=== PATIENT | female | born 1955 ===

== ENCOUNTER 2018-10-17 13:15 | Inpatient (IN) | payer MEDICARE, BC ==
[~2018-10-17] VITALS: Ht 167.6 cm; Wt 54.1 kg
[2018-10-17 14:32] LABS: Base Excess Venous 1.4 mmol/L; Bicarbonate Venous 24.8 mmol/L (24.0-30.0); PCO2 Venous 48.5 mmHg (38-42); PO2 Venous 54.6 mmHg (38-42); pH Blood Venous 7.35 (7.34-7.37)
[2018-10-17 14:34] LABS: Source, Urine Catheter
[2018-10-17 14:38] LABS: Appearance, Urine Hazy (Clear); Bilirubin, Urine Neg (Neg); Blood, Urine 4+ (Neg); Color, Urine Yellow (P-Yellow); Glucose Qualitative, Urine Neg (Neg); Ketones, Urine Neg (Neg); Leukocyte Esterase, Urine Neg (Neg); Nitrite, Urine Neg (Neg); Protein, Urine 2+ (Neg); Specific Gravity, Urine 1.025 (1.003-1.022); Urobilinogen, Urine NORM (Normal)
[2018-10-17 14:40] LABS: BASOPHILS ABSOLUTE AUTO 0.01 K/mm3 (0.00-0.23); BASOPHILS PERCENT AUTO 0 % (0-2); EOSINOPHILS PERCENT AUTO 0 % (0-6); Hematocrit 38.8 % (33.0-51.0); Hemoglobin 13.3 g/dL (11.5-16.0); IMMATURE GRAN ABSOLUTE AUTO 0.07 K/mm3 (0.00-0.10); IMMATURE GRAN PERCENT AUTO 1 % (0-1); LYMPHOCYTES ABSOLUTE AUTO 0.73 K/mm3 (0.84-5.20); LYMPHOCYTES PERCENT AUTO 5 % (21-46); MONOCYTES ABSOLUTE AUTO 0.99 K/mm3 (0.16-1.47); MONOCYTES PERCENT AUTO 7 % (4-13); Mean Corpuscular HGB 30.8 pg (26.0-34.0); Mean Corpuscular HGB Conc 34.3 g/dL (31.5-36.5); Mean Corpuscular Volume 90 fL (80-100); Mean Platelet Volume 9.6 fL (9.1-12.4); NEUTROPHILS ABSOLUTE AUTO 11.82 K/mm3 (1.96-9.15); NEUTROPHILS PERCENT AUTO 87 % (41-73); Platelet Count 288 K/mm3 (150-400); RDW Coefficient Variation 15.2 % (11.7-14.2); RDW Standard Deviation 50.2 fL (35.1-46.3); Red Blood Cell Count 4.32 M/mm3 (3.80-5.20); White Blood Cell Count 13.62 K/mm3 (4.00-11.30)
[2018-10-17 14:51] LABS: Bacteria Mod /hpf; International Normalized Ratio 0.96; Prothrombin Time Results 10.2 Sec (9.7-11.5); Squamous Epithelial Cells Few /hpf (Few)
[2018-10-17 14:52] LABS: Amorphous Mod (0-Heavy); Hyaline Casts 0-2 /lpf (0-2); Uric Acid Crystals Few /hpf
[2018-10-17 15:02] LABS: Albumin, Blood 3.9 g/dL (3.4-5.0); Albumin/Globulin Ratio 1.1 (0.8-1.8); Bilirubin, Total 1.6 mg/dL (0.1-1.0); Bun/Creatinine Ratio 48.6 (12.0-20.0); Calcium, Blood 8.9 mg/dL (8.5-10.1); Creatine Kinase MB 83.2 ng/mL (0.0-3.6); Creatinine, Blood 2.22 mg/dL (0.40-1.00); Globulin, Blood 3.4 g/dL (2.2-4.0); Potassium, Blood 3.5 mmol/L (3.5-5.5); Total Protein, Blood 7.3 g/dL (6.4-8.2); Troponin I 0.082 ng/mL (0.000-0.040)
[2018-10-17 16:55] LABS: Magnesium, Blood 3.1 mg/dL (1.6-2.4); Uric Acid, Blood 9.2 mg/dL (2.6-6.0)
--- NOTE | 2018-10-17 17:05 | NUR ---
Echocardiogram complete.
[2018-10-17 19:28] LABS: PCO2 Arterial 31.5 mmHg (35-45); PO2 Arterial 58.7 mmHg (80-100); pH Blood Arterial 7.46 (7.35-7.45)
[2018-10-17 21:28] LABS: Bilirubin, Total 1.4 mg/dL (0.1-1.0); Bun/Creatinine Ratio 54.5 (12.0-20.0); Calcium, Blood 7.8 mg/dL (8.5-10.1); Creatinine, Blood 1.54 mg/dL (0.40-1.00); Globulin, Blood 3.1 g/dL (2.2-4.0); Potassium, Blood 3.9 mmol/L (3.5-5.5); Total Protein, Blood 6.1 g/dL (6.4-8.2)
[2018-10-17 21:57] LABS: Creatine Kinase MB Index 0.9 (0.0-4.0)
--- NOTE | 2018-10-17 22:48 | NUR ---
ADMIT NOTE: PT ARRIVED TO ROOM ICU 1 FROM ER VIA GURWARREN AT 2024. PT WITH SLURRED SPEACH, RIGHT SIDED DEFICITS. PT FOLLOWING COMMANDS OPENING EYES AND IS ABLE TO TRACK-PUPILS EQUAL AND REACTIVE TO LIGHT. PT ABLE TO FORM SOME WORDS AND ABLE TO SPEAK SHORT SENTENCES. PT ANSWERED SOME QUESTIONS APPROPRIATELY. PT REPEATING, "I'M HUNGRY", "I NEED SOMETHING TO EAT". PT WAS VERBAL WITH BROTHER CORDELIA STATING, "I LOVE YOU" AND "MY DOG". PT HAS, WITH SLURRED SPEACH, MOUTHED PLACE IS [place], AND TRIED TO WORD [employer]. LS CLEAR SATS 98% ON RA. BP HYPOTENSIVE (PT RECEIVED A TOTAL OF FIVE LITERS FLUID IN ER). CURRENLTY LR AT 200mL/hr INFUSING. SEE NEXT NOTE:
--- NOTE | 2018-10-17 22:57 | NUR ---
FAMILY: PT'S BROTHER CORDELIA TO ROOM SHORTLY AFTER PT ARRIVAL AND STATED THAT HE LIVES IN THE SAME PARK THE PT. CORDELIA STATED THAT HE HADN'T SEEN PT FOR PAST THREE WEEKS BECAUSE WHEN HE WOULD VISIT THE PT THREE WEEKS AGO, PT WOULD IGNORE HIM. CORDELIA STATED THAT THERE ARE FAMILY ISSUES R/T, "SOME INHERITANCE". PT, HOWEVER, ASKED CORDELIA ABOUT HER DOG AND LATER STATED, "I LOVE YOU". CORDELIA STATED THAT PT'S FRIEND AND NEIGHBOR FOUND PT TODAY ON PT'S BEDROOM FLOOR. CORDELIA STATED THAT THIS FRIEND IS NAMED DAVID AND IS GOOD FRIENDS WITH THE PT. CORDELIA STATED THAT HE WAS UNSURE OF PT'S WISHES FOR CODE STATUS AND ONLY KNOWS THAT PT HAD A HISTORY OF HTN AND RIGHT HAND SURGERY. CORDELIA STATED THAT PT IS BEGINNING TO HAVE, "HUNCH BACK" AND THERE IS FAMILY HX OF SPINAL STENOSIS. CORDELIA STATED WILL BE BACK TOMORROW AROUND 1:00 PM.
--- NOTE | 2018-10-17 23:18 | NUR ---
ORAL CARE: PT GIVEN ORAL CARE SEVERAL TIMES SINCE ADMIT TO LOOSEN CASTS. CASTS REMOVED AND PT SUCKING WATER FROM THE ORAL SPONGE. PT SWALLOWING AND IS ABLE TO COUGH. PT STATES, "THANK YOU" EACH TIME ORAL CARE PROVIDED AND EACH TIME PT REPOSITIONED. PT REPEATING, "I'M HUNGRY" AND "I'M THIRSTY". PT GIVEN REASON FOR NPO AT THIS TIME WITH PT RESPONDING, "OKAY". WILL CONTINUE PROVIDING ORAL CARE AND MOISTURE WITH ORAL SWAB.
--- NOTE | 2018-10-18 00:05 | NUR ---
HOSPITALIST NOTIFIED RE: CONTINUED HYPOTENSION AFTER START OF SIXTH LITER FLUID. WILL PREPARE FOR CENTRAL LINE PLACEMENT.
--- NOTE | 2018-10-18 00:50 | NUR ---
DR. WARREN TO BEDSIDE: PT REPOSITIONED FOR LAD DRAW. BP IMPROVED AFTER REPOSITIONING. DR. WARREN, THEN, TO BEDSIDE. PT AWAKENED AND FOLLOWED COMMANDS STATING, "I'M SO HUNGRY". DR. WARREN OK'd FOR PT TO TRY THICKENED JUICE VIA ORAL SWAB. PT TOLERATED WELL. DR. WARREN WITNESSED PT ABLE TO SUCK THE THICKENED JUICE FROM THE SWAB AND SWALLOW WITHOUT DIFFICULTY. PT CONSUMED ENTIRE CUP OF THICKENED APPLE JUICE USING THIS METHOD. PT REPEATED, "I'M SO HUNGRY", "THAT'S SO GOOD", AND "THANK YOU". WILL UPDATE DR. WARREN WITH 0000 LABS AND FOLLOWING VITALS.
[2018-10-18 00:57] LABS: Bun/Creatinine Ratio 56.6 (12.0-20.0); Calcium, Blood 7.8 mg/dL (8.5-10.1); Creatinine, Blood 1.43 mg/dL (0.40-1.00); Potassium, Blood 3.2 mmol/L (3.5-5.5)
--- NOTE | 2018-10-18 00:57 | NUR ---
[facility] DOWN AND LOCKED ADMISSION ASSESSMENT SCREEN. UNABLE TO ACCESS ADMISSION ASSESSMENT SCREEN AT THIS TIME. WILL PLACE INITIAL ASSESSMENT ON THE PROCESS INTERVENTION ASSESSMENT.
[2018-10-18 02:43] LABS: BASOPHILS ABSOLUTE AUTO 0.01 K/mm3 (0.00-0.23); BASOPHILS PERCENT AUTO 0 % (0-2); EOSINOPHILS PERCENT AUTO 0 % (0-6); Hematocrit 33.9 % (33.0-51.0); Hemoglobin 11.4 g/dL (11.5-16.0); IMMATURE GRAN ABSOLUTE AUTO 0.07 K/mm3 (0.00-0.10); IMMATURE GRAN PERCENT AUTO 1 % (0-1); LYMPHOCYTES ABSOLUTE AUTO 0.67 K/mm3 (0.84-5.20); LYMPHOCYTES PERCENT AUTO 7 % (21-46); MONOCYTES ABSOLUTE AUTO 0.66 K/mm3 (0.16-1.47); MONOCYTES PERCENT AUTO 7 % (4-13); Mean Corpuscular HGB 30.7 pg (26.0-34.0); Mean Corpuscular HGB Conc 33.6 g/dL (31.5-36.5); Mean Corpuscular Volume 91 fL (80-100); Mean Platelet Volume 9.4 fL (9.1-12.4); NEUTROPHILS ABSOLUTE AUTO 8.17 K/mm3 (1.96-9.15); NEUTROPHILS PERCENT AUTO 85 % (41-73); Platelet Count 225 K/mm3 (150-400); RDW Coefficient Variation 15.2 % (11.7-14.2); RDW Standard Deviation 51.1 fL (35.1-46.3); Red Blood Cell Count 3.71 M/mm3 (3.80-5.20); White Blood Cell Count 9.58 K/mm3 (4.00-11.30)
[2018-10-18 03:11] LABS: Bun/Creatinine Ratio 56.6 (12.0-20.0); Calcium, Blood 7.8 mg/dL (8.5-10.1); Creatinine, Blood 1.36 mg/dL (0.40-1.00); Potassium, Blood 3.1 mmol/L (3.5-5.5)
--- NOTE | 2018-10-18 04:51 | NUR ---
SPENT SEVERAL MINUTES WITH PT. PT GIVEN ENSURE ROTHMAN FLAVOR VIA ORAL SWAB. PT EMOTIONAL, FIRST REPEATING, "I'M SO THIRSTY" AND "I'M SO HUNGRY". WHILE GIVING PT SEVERAL SWABS PT WAS INFORMED OF THE PLAN FOR THIS DAY. PT BECAME TEARFUL AND AFTER SEVERAL ATTEMPTS, VERBALIZED, "I DON'T WANT TO BE A BURDEN TO MY BROTHER". PT CONSOLABLE AND STATED, "THANK YOU" AFTER EXPLAINING THE DIFFERENT EVAILUATIONS OCCURING ON THIS DAY. PT GIVEN SEVERAL MORE ORAL SWABS AND THEN WAS CONTENT TO LYING AND GOING BACK TO SLEEP.
--- NOTE | 2018-10-18 07:16 | NUR ---
ASSUMED CARE REPORT KEVIN Braxton RN. DR. PRETTY CALLED DURING REPORT. ORDERS REC'D AND IMPLEMENTED.
--- NOTE | 2018-10-18 08:05 | NUR ---
MD VISIT DR. THOMPSON IN. PATIENT IS HUNGRY. WANTS TO EAT. RIGHT NEGLECT AND WEAKNESS.
--- NOTE | 2018-10-18 08:08 | NUR ---
DIANE Vitale RN. PLACING POWERGLIDE IV WITH TECHNOLOGY SPECIALIST
--- NOTE | 2018-10-18 08:40 | NUR ---
DYLAN HEALY. SPEECH THERAPY
--- NOTE | 2018-10-18 10:58 | NUR ---
SPEECH THERAPY CLEARED PATIENT FOR MEDS CRUSHED IN APPLESAUCE SO CA ASA WAS CHANGED TO PO AND PHARMACIST IS CHANGING LOVENOX DOSE R/T PATIENT'S AGE
--- NOTE | 2018-10-18 11:56 | NUR ---
TO CT SCAN AND BACK. CALLED AND LEFT MESSAGE FOR BROTHER TO BRING IN DENTURES AND TO PLEASE NOTIFY EX- PER PATIENT REQUEST
--- NOTE | 2018-10-18 12:37 | NUR ---
PATIENT'S BROTHER CALLED. HE WILL BRING IN DENTURES AND PATIENT'S PHONE SO SHE CAN CALL HER EX . PATIENT IS NEW TO THE AREA FROM [place]
--- NOTE | 2018-10-18 14:50 | NUR ---
NEIGHBOR IN TO VISIT. ID GIVEN TO ADMITTING. CORRECT NAME ENTERED. ORAL CARE WITH DENTURES COMPLETED
--- NOTE | 2018-10-18 15:08 | NUR ---
Patient is lying in bed and resting but quickly awakens to the sound of her name. I introduce myself and and the department I am from. Patient is warm and kind and is very appreciative of my visit. Patient struggles to talk and tears up when I comment on how frustrating and fearful her condition feels right now. We talk about expectancy and hope and the importance of a positive attitude. I listen, provide emotional support and prayer. Patient tells me with tears in her eyes that the prayer was so sweet and what she needed to hear. I will continue to remain available to patient and family.
--- NOTE | 2018-10-18 16:29 | NUR ---
CONSULTED WITH DR. GARRISON RE: CONTINUED HYPOTENSION. IONIZED CALCIUM ORDERED WITH INSTRUCTION TO CALL HIM WITH THE RESULTS
--- NOTE | 2018-10-18 17:32 | NUR ---
NOTIFIED DR. GARRISON OF IONIZED CA RESULT. ORDER FOR BOLUS LR AND TO CALL HIM IF MAP LESS THAN 60
--- NOTE | 2018-10-18 18:35 | NUR ---
BP IMPROVED AFTER ONE LITER BOLUS. CONTINUES TO HAVE DIFFICULTY WITH FINDING WORDS AND CAN'T SAY PASSWORD TO HER PHONE, EVEN THOUGH SHE SAYS SHE KNOWS IT. GOOD APPETITE.
--- NOTE | 2018-10-18 19:15 | NUR ---
ASSUMED CARE PT IN BED, WAKES TO VOICE, IS ALERT TO NAME AND FOLLOWS COMMANDS. PT HAVING A DIFFICULT TIME FINDING APPROPRIATE WORDS TO EXPRESS NEEDS BUT USES WORDS THAT ARE CLOSE TO WHAT SHE IS TRYING TO SAY. PT EXPRESSES FRUSTRATION WITH COMMUNCATION LIMITATES AND REPEATS "I AM NOT DUMB." REASSURED PT THAT HER SX ARE ALL FROM THE STROKE. PT CONTINUES TO WANT TO CALL EX- BUT CANNOT UNLOCK PHONE YET. LR AT 200ML/HR POST BOLUS D/T HYPOTENSION AND BP HAS IMPROVED; WILL CALL FOR ADDITIONAL ORDERS IF MAP <60, ECG SHOWS SR IN THE 60-70'S AND O2 SATS MID 90'S ON RA.
--- NOTE | 2018-10-19 | NUR ---
UPDATE/FOUND POTENTIAL PHONE NUMBER FOR EX- WHILE TALKING WITH PT, SHE REPORTED THAT THERE IS ANOTHER PHONE THAT DOES NOT HAVE A PASSWORD. PHONE LOCATED ON COUNTER AND ABLE TO FIND PHONE LISTING FOR WERO BLOCK. PT CONFIRMS THIS IS THER PERSON SHE IS TRYING TOO CONTACT AND WOULD LIKE HIM UPDATED. PT HAS NO MOVEMENT TO RT ARM BUT IS ABLE TO WIGGLE TOES ON RT FOOT AND HAS MOVED RT LEG BACK AND FORTH IN BED. PT CONTINUES TO STRUGGLE TO FIND WORDS BUT IS AWARE SHE IS NOT USING THE RIGHT WORD AND HAS BEEN ABLE TO CORRECT HERSELF AT TIMES. PT HAS BEEN ABLE TO DRINK VIA SPOON THREE 4OZ CONTAINERS OF FLUID THAT ARE NECTAR THICK. PT HAS BEEN REMINDED TO SLOW DOWN AND CONTINUES TO REPORT THIRST. BP STABLE W/ MAP >60.
[2018-10-19 03:46] LABS: BASOPHILS ABSOLUTE AUTO 0.01 K/mm3 (0.00-0.23); BASOPHILS PERCENT AUTO 0 % (0-2); EOSINOPHILS ABSOLUTE AUTO 0.07 K/mm3 (0.00-0.68); EOSINOPHILS PERCENT AUTO 1 % (0-6); Hematocrit 31.4 % (33.0-51.0); Hemoglobin 10.8 g/dL (11.5-16.0); IMMATURE GRAN ABSOLUTE AUTO 0.02 K/mm3 (0.00-0.10); IMMATURE GRAN PERCENT AUTO 0 % (0-1); LYMPHOCYTES ABSOLUTE AUTO 1.54 K/mm3 (0.84-5.20); LYMPHOCYTES PERCENT AUTO 22 % (21-46); MONOCYTES ABSOLUTE AUTO 0.86 K/mm3 (0.16-1.47); MONOCYTES PERCENT AUTO 12 % (4-13); Mean Corpuscular HGB 31.2 pg (26.0-34.0); Mean Corpuscular HGB Conc 34.4 g/dL (31.5-36.5); Mean Corpuscular Volume 91 fL (80-100); Mean Platelet Volume 9.3 fL (9.1-12.4); NEUTROPHILS ABSOLUTE AUTO 4.58 K/mm3 (1.96-9.15); NEUTROPHILS PERCENT AUTO 65 % (41-73); Platelet Count 198 K/mm3 (150-400); RDW Standard Deviation 50.6 fL (35.1-46.3); Red Blood Cell Count 3.46 M/mm3 (3.80-5.20); White Blood Cell Count 7.08 K/mm3 (4.00-11.30)
[2018-10-19 04:31] LABS: Albumin, Blood 2.2 g/dL (3.4-5.0); Anion Gap 5 mmol/L (6-16); Blood Urea Nitrogen 43 mg/dL (8-24); Bun/Creatinine Ratio 45.7 (12.0-20.0); CO2, Blood 29 mmol/L (21-32); Calcium, Blood 7.8 mg/dL (8.5-10.1); Chloride, Blood 113 mmol/L (98-108); Creatinine, Blood 0.94 mg/dL (0.40-1.00); Glomerular Filtration Rate >60 (60-); Glucose, Blood 109 mg/dL (70-99); Potassium, Blood 3.1 mmol/L (3.5-5.5); Sodium, Blood 147 mmol/L (136-145)
[2018-10-19 04:58] LABS: CPK Creatine Kinase 2738 U/L (26-193)
[2018-10-19 05:19] LABS: Phosphorus, Blood 1.5 mg/dL (2.5-4.9)
--- NOTE | 2018-10-19 05:32 | NUR ---
CALL TO DR WARREN UPDATED ON AM LABS, CHART REVIEWED BY DR WARREN AND ORDER OBTAINED FOR 15MMOL KPHOS.
--- NOTE | 2018-10-19 06:03 | NUR ---
SHIFT SUMMARY NO CHANGE TO NEURO STATUS FROM PREVIOUS NOTES. PT OFFERED JUICE THIS AM AND STATED "I DON'T WANT ANYTHING!" STATES "I FEEL BAD," AND IS RUBBING HEAD BUT IS REFUSING REPOSITIONING AND PAIN MEDICATIONS BUT STILL AGREES THAT CALLING WERO (EX-) IS ALRIGHT. KPHOS STARTED PER ORDER AND LR AT 100 WHILE INFUSING. BP ADEQUATE WITH MAP >60, ECG SHOWS SR AND O2 SATS LOW 90'S WITH 1L/NC. MESSAGE LEFT WITH PT'S EX- WERO AT .
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
--- NOTE | 2018-10-19 07:23 | NUR ---
ASSUMED CARE REPORT FROM CHERYL ANTHONY.
[2018-10-19] MEDS ORDERED: DICLOFENAC SOD100 G1 TOP (07:34)
[2018-10-19] MEDS ORDERED: LISI20 PO (07:36)
[2018-10-19] MEDS ORDERED: LOSARTAN POTAS100 MG PO (07:41)
[2018-10-19] MEDS ORDERED: ATEN100 PO (07:49)
[2018-10-19] MEDS ORDERED: HYDCHL12.5 PO (07:52)
[2018-10-19] MEDS ORDERED: ACYC400 PO (07:52)
[2018-10-19] MEDS ORDERED: AMLO5 PO (07:55)
[2018-10-19] MEDS ORDERED: NALTREXONE PO (08:01)
--- NOTE | 2018-10-19 09:52 | NUR ---
MD VISITS DR. THOMPSON AND DR. GARRISON IN. PATIENT IS SLEEPING
--- NOTE | 2018-10-19 13:12 | NUR ---
PATIENT PCU STATUS NOW. OOB TO CHAIR WITH PT. TYLER FED HER LUNCH. BACK TO BED FOR NAP. LR 100 ML/HR
[2018-10-19 16:48] LABS: Phosphorus, Blood 2.2 mg/dL (2.5-4.9); Potassium, Blood 3.3 mmol/L (3.5-5.5)
--- NOTE | 2018-10-19 17:10 | NUR ---
CALLED DR. GARRISON WITH 1600 LAB RESULTS. ORDER FOR NEUTRA-PHOS K+ NOW AND AT BEDTIME (2 PACKETS EACH TIME). PHARMACIST ADVISED THAT WE NO LONGER HAVE NEUTRA-PHOS K+. DR. GARRISON APPROVED NEUTRA-PHOS
--- NOTE | 2018-10-19 18:24 | NUR ---
REPORT RECEIVED FROM DICK CALIX AT 1800 AT PT BEDSIDE IN ICU 1. NURSE WAS FEEDING PT THAT TIME. PATIENT TO TRANSFER TO PCU 2 UPON COMPLETION OF MEAL. BELONGINGS ALREADY TO NEW ROOM.
--- NOTE | 2018-10-19 18:51 | NUR ---
BEDSIDE REPORT GIVEN TO CHERYL GORDON. PATIENT WILL MOVE TO PCU 2
--- NOTE | 2018-10-19 19:23 | NUR ---
PT TRANSFERRED FROM ICU. VS STABLE AT THIS TIME. PT A&O X4. ORIENTED TO ROOM AND EDUCATED BAKER HELPER LIGHT.
[2018-10-20 04:34] LABS: BASOPHILS ABSOLUTE AUTO 0.01 K/mm3 (0.00-0.23); BASOPHILS PERCENT AUTO 0 % (0-2); EOSINOPHILS ABSOLUTE AUTO 0.17 K/mm3 (0.00-0.68); EOSINOPHILS PERCENT AUTO 2 % (0-6); Hematocrit 37.1 % (33.0-51.0); Hemoglobin 12.6 g/dL (11.5-16.0); IMMATURE GRAN ABSOLUTE AUTO 0.04 K/mm3 (0.00-0.10); IMMATURE GRAN PERCENT AUTO 1 % (0-1); LYMPHOCYTES ABSOLUTE AUTO 1.71 K/mm3 (0.84-5.20); LYMPHOCYTES PERCENT AUTO 21 % (21-46); MONOCYTES ABSOLUTE AUTO 0.86 K/mm3 (0.16-1.47); MONOCYTES PERCENT AUTO 11 % (4-13); Mean Corpuscular HGB 30.7 pg (26.0-34.0); Mean Corpuscular Volume 91 fL (80-100); Mean Platelet Volume 9.4 fL (9.1-12.4); NEUTROPHILS ABSOLUTE AUTO 5.32 K/mm3 (1.96-9.15); NEUTROPHILS PERCENT AUTO 66 % (41-73); Platelet Count 206 K/mm3 (150-400); RDW Coefficient Variation 14.6 % (11.7-14.2); RDW Standard Deviation 48.6 fL (35.1-46.3); White Blood Cell Count 8.11 K/mm3 (4.00-11.30)
[2018-10-20 04:55] LABS: Albumin, Blood 2.4 g/dL (3.4-5.0); Anion Gap 4 mmol/L (6-16); Blood Urea Nitrogen 21 mg/dL (8-24); Bun/Creatinine Ratio 27.5 (12.0-20.0); CO2, Blood 30 mmol/L (21-32); Calcium, Blood 8.1 mg/dL (8.5-10.1); Chloride, Blood 110 mmol/L (98-108); Creatinine, Blood 0.77 mg/dL (0.40-1.00); Glomerular Filtration Rate >60 (60-); Glucose, Blood 98 mg/dL (70-99); Phosphorus, Blood 2.8 mg/dL (2.5-4.9); Potassium, Blood 3.5 mmol/L (3.5-5.5); Sodium, Blood 144 mmol/L (136-145)
[2018-10-20 05:03] LABS: CPK Creatine Kinase 1435 U/L (26-193)
--- NOTE | 2018-10-20 06:19 | NUR ---
SHIFT SUMMARY: PT A&OX4 T/O SHIFT. VSS. NO CHANGES IN NEURO CHECKS. ABSENT SENSATION TO RIGHT ARM. RIGHT ARM FLACCID MOST OF SHIFT. GROSS MOVEMENT TO ARM NOTED THIS MORNING. PT REPORTS MILD SENSATION TO RIGHT LEG. ABLE TO REPOSITION IN BED WITH 2 ASSIST. BM X1 USING BEDPAN. CARRASCO CATHETER PATENT AND DRAINING CLEAR YELLOW URINE. LR INFUSING AT 100 ML/HR. PLEASANT AND COOPERATIVE WITH CARE. PT REPORTS FEELING FRUSTURATED AT TIMES R/T LACK OF INDEPENDENCE AND "FEELING FUNNY". BED ALARM ON FOR SAFETY.
--- NOTE | 2018-10-20 16:30 | NUR ---
SHIFT SUMMARY PT RESTING IN BED THROUGHOUT THE DAY. VSS. ALERT TO SELF AND FAMILY, FOLLOWING COMMANDS APPROPRIATELY. LEFT ARM AND LEG ARE STRONGER THAN THE RIGHT. PT UNABLE TO COLLAR SEWER WITH LEFT HAND VERY WELL, MOVEMENTS ARE UNCOORDINATED. RIGHT LEG HAS WEAK MOVEMENT AND SOME SENSATION TO TOUCH, PT ATTEMPTING TO MOVE RIGHT LEG PURPOSEFULLY WITH SOME SUCCESS. RIGHT ARM FLACCID, NO PURPOSEFUL MOVEMENTS NOTED, ROM COMPLETED TO RIGHT ARM. 1+ PITTING EDEMA NOTED TO RIGHT HAND, CONTINUE TO ELEVATE HAND. SPEECH IS SLURRED AND PT HAS DYSPHAGIA, WHICH IS FRUSTRATING TO HER. RIGHT FACIAL DROOP NOTED. LUNG SOUNDS CLEAR, NSR RATE 78 PER TELEMETRY. TRACE EDEMA NOTED TO BLE. PT HAS MULTIPLE SCRAPES AND BRUISES FROM HER FALL AT HOME. PT TOLERATING FOOD WELL. WILL CONTINUE TO MONITOR.
--- NOTE | 2018-10-20 23:59 | NUR ---
PROVIDER COMMUNICATION FROILAN TAVAREZ NOTIFIED PT NOTED CRYING AND HOLDING HEAD; PT REPORTS PAIN AND LOCALIZED IN FACE/FRONTAL AREA; PT STS "IT DIDN'T HURT LIKE THIS BEFORE." PT CALM IN ROOM AT THIS TIME. NO CHANGES IN NEURO STATUS FROM SHIFT ASSESSMENT NOTED. NO ORDERS RECIEVED. WCTM UNTIL SHIFT CHANGE.
[2018-10-21 04:13] LABS: BASOPHILS ABSOLUTE AUTO 0.02 K/mm3 (0.00-0.23); BASOPHILS PERCENT AUTO 0 % (0-2); EOSINOPHILS ABSOLUTE AUTO 0.28 K/mm3 (0.00-0.68); EOSINOPHILS PERCENT AUTO 3 % (0-6); Hemoglobin 11.3 g/dL (11.5-16.0); IMMATURE GRAN ABSOLUTE AUTO 0.06 K/mm3 (0.00-0.10); IMMATURE GRAN PERCENT AUTO 1 % (0-1); LYMPHOCYTES ABSOLUTE AUTO 1.79 K/mm3 (0.84-5.20); LYMPHOCYTES PERCENT AUTO 21 % (21-46); MONOCYTES ABSOLUTE AUTO 0.85 K/mm3 (0.16-1.47); MONOCYTES PERCENT AUTO 10 % (4-13); Mean Corpuscular HGB 30.6 pg (26.0-34.0); Mean Corpuscular HGB Conc 34.2 g/dL (31.5-36.5); Mean Corpuscular Volume 89 fL (80-100); Mean Platelet Volume 9.1 fL (9.1-12.4); NEUTROPHILS ABSOLUTE AUTO 5.42 K/mm3 (1.96-9.15); NEUTROPHILS PERCENT AUTO 64 % (41-73); Platelet Count 201 K/mm3 (150-400); RDW Coefficient Variation 14.8 % (11.7-14.2); Red Blood Cell Count 3.69 M/mm3 (3.80-5.20); White Blood Cell Count 8.42 K/mm3 (4.00-11.30)
[2018-10-21 04:38] LABS: Alanine Aminotransfer (ALT/SGP 72 U/L (12-78); Albumin, Blood 2.4 g/dL (3.4-5.0); Albumin/Globulin Ratio 0.8 (0.8-1.8); Alk Phos 46 U/L (50-136); Anion Gap 5 mmol/L (6-16); Aspartate Aminotrans (AST/SGOT 76 U/L (12-37); Bilirubin, Total 0.9 mg/dL (0.1-1.0); Blood Urea Nitrogen 14 mg/dL (8-24); Bun/Creatinine Ratio 18.3 (12.0-20.0); CO2, Blood 29 mmol/L (21-32); CPK Creatine Kinase 857 U/L (26-193); Chloride, Blood 109 mmol/L (98-108); Creatine Kinase MB 1.2 ng/mL (0.0-3.6); Creatine Kinase MB Index 0.1 (0.0-4.0); Creatinine, Blood 0.76 mg/dL (0.40-1.00); Globulin, Blood 2.9 g/dL (2.2-4.0); Glomerular Filtration Rate >60 (60-); Glucose, Blood 100 mg/dL (70-99); Magnesium, Blood 1.5 mg/dL (1.6-2.4); Phosphorus, Blood 3.1 mg/dL (2.5-4.9); Potassium, Blood 3.5 mmol/L (3.5-5.5); Sodium, Blood 143 mmol/L (136-145); Total Protein, Blood 5.3 g/dL (6.4-8.2)
--- NOTE | 2018-10-21 06:05 | NUR ---
SHIFT SUMMARY PT WOKE EASILY T/O SHIFT. ORIENTED TO SELF, [place], DAY OF WEEK AND FOLLOWING DIRECTIONS. OCC DEMONSTRATED DIFFICULTY FINDING CORRECT WORD. PUPILS EQUAL AND UNCHANGED IN REACTIVITY T/O SHIFT. RUE CONT. 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 RA; VSS. CARRASCO IN PLACE, DRAINING WELL. SCD'S TO BLE'S. CALL LIGHT IN REACH. WCTM UNTIL REPORT TO DAY SHIFT RN. SEE PROVIDER COMMUNICATION NOTE REGARDING PT C/O HEAD/FACE AND GENERALIZED PAIN. PT FREQUENTLY REFUSED OFFER FOR PAIN MEDICATION. NEURO STATUS ASSESSED WITHOUT SIGNIFICANT CHANGE UNTIL ABOUT 0400 WHEN DECREASE IN PT ABILITY TO CONVERSE/VERBAL INTERACTION NOTED ALONG WITH PT TEARFUL C/O HEAD/FACE PAIN. 0425 DR[address] GASCA NOTIFED OF CONCERN OF PRESENCE OF PT C/O PAIN IN FACE/HEAD AND CHANGES NOTED. STAT CT ORDERED. DR. GASCA MADE AWARE OF RESULTS. WCTM UNTIL REPORT TO DAY SHIFT RN.
--- NOTE | 2018-10-21 09:48 | NUR ---
RECIEVED REPORTFROM AIR CARGO SPECIALIST SUPERVISOR- PER REPORT PT HAD BILATERAL CVA MORE RIGHT SIDED EFFECT. R ARM FLACID, RIGHT LEG HAS SOME MOVEMENT, LEFT LEG HAS MORE MOVEMENT BUT HAS ISSUES WITH MOTOR CONTROL, RIGHT FACIAL DROOP NOTED WHEN PT SMILES. PT WAS DOWN FOR A TIME AND HAS PETS IN THE HOME, POSSIBLY THE REASON FOR THE SCRATCHES AND BRUISES ON PT EXTREMITIES. WILL ADMINISTER PT MORNING MEDICATION WHEN SHE ARRIVES ON MEDICAL FLOOR. AIR CARGO SPECIALIST SUPERVISOR WILL ADMINISTER STAT IV MAGNESIUM.
--- NOTE | 2018-10-21 10:06 | NUR ---
TRANSFER NOTE PT STABLE FOR TRANSFER TO MEDICAL FLOOR. REPORT CALLED TO ANNIE LUNA ON MEDICAL FLOOR. PT TRANSFERED VIA BED WITH BELONGINGS TO MEDICAL FLOOR.
--- NOTE | 2018-10-21 19:54 | NUR ---
SHIFT SUMMARY- PT ALERT AND SOMEWHAT ORIENTED. SHE CAN NOT TELL STAFF HER , BUT SHE CAN TELL THEM THAT SHE IS CONFUSED. PT HAS SOME DIFFICULTY FINDING WORDS RIGHT ARM IS FLACID HOWEVER PT CAN SHRUG THE RIGHT SHOULDER. PT HAS GROSS MOTOR MOVEMENT ON LEFT ARM AND LEG, SOME MINIMAL MOVEMENT NOT PRESENT BEFORE IN THE RIGHT LOWER EXTREMITY PER REPORT FROM SALES REPRESENTATIVES. PT TRANSFERED UP FROM PCU EARLY IN THE SHIFT. PASSED ALL THIS ON IN BEDSIDE REPORT WITH NIGHT RN BERT. PT VERY PLEASENT SAYS PLEASE AND THANK YOU, SHE IS VERY APPRECIATIVE OF THE CARE SHE RECIEVES. PT SEEMS TO BE IN A VERY POSSITIVE FRAME OF MIND.
--- NOTE | 2018-10-22 03:14 | NUR ---
PT VERY CONFUSED DISORIENTED AND GETTING OUT OF BED UNASSISTED. FALL RISK. MOVED TO 345 REPORT GIVEN TO RYAN LUNA.
--- NOTE | 2018-10-22 05:59 | NUR ---
SHIFT SUMMARY PT TRANSFER FROM RM 27. PT HAD NO ATTEMPTS TO GET OUT OF BED. PT HAS SLEPT T/O SHIFT. THIS AM PT HAD SLIGHT TEMP AND TX PER EMAR. PT CURRENTLY SLEEPING AND BREATHING EASY. PT HAD NO ISSUES OR SIGNIFICANT CHANGES NOTED. CALL LIGHT IN REACH AND BED ALARM ON.
[2018-10-22 09:28] LABS: BASOPHILS ABSOLUTE AUTO 0.03 K/mm3 (0.00-0.23); BASOPHILS PERCENT AUTO 0 % (0-2); EOSINOPHILS PERCENT AUTO 3 % (0-6); Hematocrit 35.8 % (33.0-51.0); Hemoglobin 12.2 g/dL (11.5-16.0); IMMATURE GRAN ABSOLUTE AUTO 0.08 K/mm3 (0.00-0.10); IMMATURE GRAN PERCENT AUTO 1 % (0-1); LYMPHOCYTES ABSOLUTE AUTO 1.19 K/mm3 (0.84-5.20); LYMPHOCYTES PERCENT AUTO 16 % (21-46); MONOCYTES ABSOLUTE AUTO 0.73 K/mm3 (0.16-1.47); MONOCYTES PERCENT AUTO 10 % (4-13); Mean Corpuscular HGB 30.3 pg (26.0-34.0); Mean Corpuscular HGB Conc 34.1 g/dL (31.5-36.5); Mean Corpuscular Volume 89 fL (80-100); NEUTROPHILS ABSOLUTE AUTO 5.03 K/mm3 (1.96-9.15); NEUTROPHILS PERCENT AUTO 69 % (41-73); Platelet Count 209 K/mm3 (150-400); RDW Coefficient Variation 14.6 % (11.7-14.2); Red Blood Cell Count 4.02 M/mm3 (3.80-5.20); White Blood Cell Count 7.26 K/mm3 (4.00-11.30)
[2018-10-22 09:39] LABS: Alanine Aminotransfer (ALT/SGP 86 U/L (12-78); Albumin, Blood 2.8 g/dL (3.4-5.0); Albumin/Globulin Ratio 0.9 (0.8-1.8); Alk Phos 56 U/L (50-136); Anion Gap 6 mmol/L (6-16); Aspartate Aminotrans (AST/SGOT 77 U/L (12-37); Bilirubin, Total 0.9 mg/dL (0.1-1.0); Blood Urea Nitrogen 10 mg/dL (8-24); CO2, Blood 28 mmol/L (21-32); Calcium, Blood 8.6 mg/dL (8.5-10.1); Chloride, Blood 109 mmol/L (98-108); Creatinine, Blood 0.67 mg/dL (0.40-1.00); Globulin, Blood 3.2 g/dL (2.2-4.0); Glomerular Filtration Rate >60 (60-); Glucose, Blood 106 mg/dL (70-99); Magnesium, Blood 1.8 mg/dL (1.6-2.4); Potassium, Blood 3.3 mmol/L (3.5-5.5); Sodium, Blood 143 mmol/L (136-145)
--- NOTE | 2018-10-22 15:26 | NUR ---
Patient is lying in bed and alert. Patient indicated on my last visit that she would like inspirational guitar music. So I brought in my guitar and played for patient. I also talked with patient about the stroke, her 3 days of lying on the floor before someone found her and about the long road of therapy ahead of her. Patient spoke of how kind our staff has been to her and how she absolutely stubborn about working hard to get to her best possible state of being. Patient is truly an inspiration with her amazing courage and her hopeful outlook. I provided soft therapeutic guitar music, emotional support and prayer. Patient voiced gratitude for my visit. I will continue to remain available to patient and family.
--- NOTE | 2018-10-22 19:37 | NUR ---
SHIFT SUMMARY PATIENT A&O TO SELF AND EVENT. SPEECH SLURRED AND HARD TO UNDERSTAND. RA FLACCID AND UNABLE TO MOVE, R LEG WEAK WITH SOME GROSS MOVEMENT. DENIES ANY PAIN, SOB, OR NAUSEA THIS SHIFT. CARRASCO D/C, WNL. PATIENT HAD ONE UNCONTINENT EPISODE SINCE LUNA WAS D/C. SCATTERED SCABS THROUGHOUT. MEPILEX TO RIGHT HIP AND BACK OF LEFT LEG IN PLACE. BED ALARM ON. NO ACUTE CHANGES THIS SHIFT. REPORT GIVEN TO PREPARATION CENTER COORDINATOR RN.
--- NOTE | 2018-10-22 23:32 | NUR ---
10/22/182014 PT HAS A POWER GLIDE TO RT UPPER ARM BUT RN NOTICED THAT IT DID NOT HAVE ANY EXTENSION PORTS TO SITE. PT CONFUSED AND COULD NOT PROVIDE ANY INFO. NO IV PORTS NOTICED ON BED. VAUDEVILLE ACTORYYAO NOTIFIED. OTHER IV SITE DID NOT FLUSH AND WAS DC'D.
--- NOTE | 2018-10-22 23:37 | NUR ---
10/22/18 2250 PT CRYING IN PAIN AND WHEN ASKED WHERE PAIN WAS AT SHE STATED, "ALL OVER". PT INCONTINENT OF URINE AND DURING BED LINEN CHANGE RN FOUND EXTENSION PORTS LAYING UNDER PT. NOTIFIED REALTY LOAN SPECIALISTYAYO LUNA. NEW IV SITE STARTED TO LEFT ANTECUBITAL AND PT MEDICATED WITH IV PAIN MED PER JUN. PT FELL ASLEEP AFTER 15 MINUTES. BED ALARM ON.
--- NOTE | 2018-10-23 05:52 | NUR ---
10/23/18 0545 PT CALLING FOR "FOOD" AND TOOK ONLY FEW BITES OF YOGURT AND WATER. IRRITABLE THIS AM. PT HAS MOOD SWINGS FROM GRATEFUL AND SMILING TO IRRITABLE,IMPATIENT AND CUSSING. SLEPT ON AND OFF THIS SHIFT. VITALS STABLE WITH ONLY SLIGHT TEMP THIS AM.
--- NOTE | 2018-10-23 12:14 | NUR ---
PATIENT WAS VERY CONFUSED THIS AM, UNWILLING TO OPEN EYES OR ANSWER QUESTIONS. AT ABOUT 1145 PATIENT CHANGED MOODS AND BECAME VERY VERBAL AND CHEERFUL. REPORTING PAIN IN R SIDE OF FACE THAT IS SHARP AND STABBING AND COMES AND GOES. DR. MARQUEZ NOTIFIED AND PATIENT WAS STARTED ON NORCO AND GABAPENTIN TO TREAT.
--- NOTE | 2018-10-23 15:55 | NUR ---
Patient is frustrated today by the reality of her limitations and her inability to force her body to cooperate and do what she wants it to do. Patient also repeated several times about her concern that some of the people that she cares about marce not have the capacity to deal with all that she is now. Patient is easily encouraged and is able to switch to a positive frame of mind and she becomes grateful for who is still with her and who God will bring next. Patient went so far as to say that she is thankful for the stroke in that she hopes it will help her grow as a person and help her have a greater depth of character. Patient is easily pointed to a focus on what she can do and what she does have.I provide companionship, emotional support and prayer. I reinforce helpful attitudes and I normalize patient's experience. Patient responds well and shows signs of an elevated mood.
--- NOTE | 2018-10-23 18:34 | NUR ---
PATIENT VERY PAINFUL THIS AM AND WITHDRAWN. DOING MUCH BETTER BY AFTEROON. ABLE TO WORK WITH PT/OT. 1-2 ASSIST TO W/C AND BSC. CONT/INCONT OF URINE, WEARING ATTENDS. VSS THIS SHIFT. LUNGS CLEAR, ON RA. STARTED ON NORCO AND SCHEDULED GABAPENTIN FOR SHARP INTERMITTENT FACIAL PAIN. MULTIPLE ABRASION TO FACE AND EXTREMITIES. R FACIAL DROOP AND R SIDED DEFECIT. PATIENT REQUIRES ASSISTANCE WITH MEALS. NO IV ACCESS. BECAME VERY UPSET THIS EVENING AFTER WHO SHE IS FROM CALLED TO TELL HER THAT HE TOOK HER DOG. CHAPLAIN MACK WAS CALLED AND CAME UP TO SPEAK WITH PATIENT.
--- NOTE | 2018-10-24 05:24 | NUR ---
Rn summary: Pt is alert, mostly oriented, she just is not able to find info that she needs, unable to remember her birthday, know the president "is someone nobody likes". Pt is directable, very pleasant. Pt is able to shrug shoulder to move rt arm, and does have gross movement to rt foot. Pt talks but struggles to fine the right words. Pt did watch TV until 2330. Pt did ret well. She gets up to the BSC with 2 assist and the gait belt. Pt has been almost over nice and thankful. This am pt trying to get out of bed to use the BSC. Pt will not wait for assist. She just pushed herself out of bed. She has spacial deficit, this morning she is stubborn and difficult to direct. She almost fell getting out of bed while we were trying to help her. Pt will not make eye contact and appears angry. She did this yesterday morning per report. Pt refuses protonix this am. Rt arm and leg elevated on pillow. Call light in reach, side rail up on left side of bed for safety. Bed alarm is on.
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
--- NOTE | 2018-10-24 12:32 | NUR ---
PATIENT HAD A FALL OUT OF W/C WHILE LEANING FORWARD TO LOOK AT SOMETHING OUTSIDE. PATIENT DENIES HITTING HER HEAD. SHE WAS FOUND LYING ON HER R SHOULDER AND THERE IS SOME REDNESS AT THIS SITE, BUT PATIENT DENIES ANY PAIN. PATIENT HAD A TAB ALARM SET, BUT BY THE TIME IT WENT OFF SHE WAS ALREADY FALLING. DR. MARQUEZ NOTIFIED OF THE FALL AND TOLD ABOUT THE R SHOULDER REDNESS. AT THIS TIME DR. MARQUEZ JUST WANTS TO KEEP MONITORING PAIN IN R SHOULDER PATIENT IS DENYING ANY INJURY. PATIENT WAS ASSISTED BACK TO BED AND VS REMAIN STABLE. BED ALARM SET FOR SAFETY AND PATIENT REMINDED THAT THE CALL LIGHT NEEDS TO BE USED IN ORDER TO TRANSFER OUT OF THE BED.
--- NOTE | 2018-10-24 17:30 | NUR ---
PATIENT CONTINUES TO HAVE MOOD SWINGS WHERE SHE IS VERY ANGRY AND HOPELESS AND THEN VERY HAPPY AND HOPEFUL. DID WELL WORKING WITH PT TODAY AND WAS ABLE TO WALK WITH ASSIST IN THE HALLS. PATIENT UNFORTAUNATELY HAD A FALL WHILE SITTING IN W/C AND FELL FORWARD THIS SHIFT WHILE TRYING TO LEAN FORWARD TO LOOK AT SOMETHING OUT THE WINDOW. PATIENT DENIES ANY INJURIES DUE TO THE FALL. PATIENT CONTINENT THIS SHIFT. LUNGS CLEAR, ON RA. NORCO FOR PAIN. REPORTS THAT SHE HAS TAKEN GABAPENTIN IN THE PAST AND IT MADE HER NAUSEATED SO REFUSED IT TODAY. DR. KAUR AT BEDSIDE TO CONSULT ON THIS PATIENT.
--- NOTE | 2018-10-24 23:13 | NUR ---
10/24/182099 PT REFUSING NEURONTIN, STATES IT MAKES HER SICK. PT DID EAT 3/4 SANDWICH CUT IN SMALL PIECES. PT VISITED WITH BROTHER THIS EVENING. GETTING UP TO BSC A LITTLE EASIER.
--- NOTE | 2018-10-25 05:35 | NUR ---
Rn summary: Patient has a positive yet realistic veiw on her situation. She had a nice visit with her brother. Pt continues to have gross movement to Rt leg and shoulder movement on the right. When she tries to move herself she gets her right arm caught under her. Pt is up to the bedside commode with 2 assist and a gait belt. Pt urine is very strong and foul smelling. Will request a UA this am. Pt was medicated x1 with [place] for facial pain. Pt did rest for a while. About 0330 pt started itching. Lotion was applied with some relief. Pt refused to take any meds for discomfort. Pt does have labile emotions. Since 0400 pt has been talking to herself, she is frustrated and angry, swearing. She refuses any cares, resents if staff enters room. Pt does c/o her rt leg hurting more when moving her back into bed and repositioning her. She did fall on that side yesterday. Will possibly need evaluation. Call light is in reach but pt states she doesnt remember how to use it. Bed alarm is on with close freq monitoring.
--- NOTE | 2018-10-25 14:43 | NUR ---
I heard patient yelling on the phone before entering and was, "I want my dog back." When I entered patient's room, patient was crying. Patient stated that she can't talk today because she is too upset. I expressed my sympathy for her having such a rough day. I asked if I could pray for her before I leave and patient said, "Yes, please do." When I began to pray patient cried even harder but by the time I finished she was drying her tears. Patient said that she needed the prayer, she thanked me and said, "You are good for me, I feel better already. Tomorrow will be a better day. I will continue to be available to patient and family.
--- NOTE | 2018-10-25 16:46 | NUR ---
SHIFT SUMMARY PATIENT PLEASANT, HAS BEEN LABILE TODAY. DEFINITE EXPRESSIVE APHASIA NOTED. PATIENT DOES HAVE MAJOR WORD SALAD AND SHE IS WORKING VERY HARD TO EXPRESS HERSELF. SHE HAS BEEN NOTHING BUT NICE TO ME TODAY. SHE REFUSED A SHOWER AFTER ACCEPTING A BED BATH. SHE RELAXED TODAY AFTER WORKING WITH PHYSICAL THERAPY. PATIENT DOES NOT LIKE HER CURRENT DIET.
--- NOTE | 2018-10-25 17:21 | NUR ---
Inital Visit: Palliative Care Visit for Advanced Care Planning. Pt is A&Ox2 and denies pain at this time. Pt reports severe anxiety and denies dyspnea. Engaged in therapeutic discussion regarding goals of care. Pt reports that she lives alone and is with no children. Pt reports she is currently from her and plans for possible divorce. Pt reports no particular roman catholic. Engaged in discussion regarding advanced care planning. Educated on the importance of planning for the possibility of needing assistance with her care needs ranging from short term and life long needs pending recovery prognosis. Pt reports optimism and willingness to comply with recommendations. She reports her brother has been supportive with plans for continued support. Educated Pt on the possibility of needing a higher level of care pending rehabilitation success or at the very least needing in home caregivers. At this point in conversation Pt focuses conversation on the need to recover her therapy dog. She states her has come and taken all of her things including her dog and cats. She reports plan of brother to help recover her dog. Pt reports no other concerns at this time. Palliative Care will remain available
[2018-10-25] MEDS ORDERED: Naltrexone HCl50 MG PO (21:47)
--- NOTE | 2018-10-25 21:56 | NUR ---
GOT REPORT FROM OFFGOING RN. SHE SAID PT HAD C/O OF JULIO AREA BEING SORE SO RN SUGGESTED LEAVING DEPENDS OFF FOR AWHILE AND THAT PT HAD AGREED WITH IT. BY THE TIME THIS RN GOT INTO ROOM, PT WAS UPSET SHE DIDN'T HAVE ANY UNDERWEAR ON AND COULDN'T BELIEVE ANYONE WOULD DO THAT TO SOMEONE. SHE WAS VERY UPSET AND CUSSING AND CURSING. SHE WAS INCONT OF URINE AND CHANGED BED LINENS AND GOT ATTENDS ON HER. BUT SHE STILL UPSET AND WANTS TO BE LEFT ALONE. HER BROTHER CAME IN LATER AND SHE IS STILL UPSET AND SAYING SHE WAS LEFT WITHOUT UNDERWEAR AND DID NOT GET FED. OFFGOING SHIFT HAD SAID SHE DIDN'T WANT TO EAT DINNER THIS RN TOLD HER THAT AND SHE SAID THEY WERE "LIARS". OFFERED WHAT WE HAD TO EAT IN THE PANTRY BUT SHE DECLINED IT ALL AND SAID TO LEAVE HER ALONE STILL CURSING AND CUSSING. REFUSED VS FROM THIS RN. WILL TRY ANOTHER STAFF.
--- NOTE | 2018-10-25 22:42 | NUR ---
LEGS OUTSIDE OF BED SETTING OFF ALARM. HELPED GET HER LEGS BACK IN WITH OTHER RN AND SHE WAS SCREAMING AND CURSING TO LEAVE HER ALONE. REFUSED VS.
--- NOTE | 2018-10-26 07:17 | NUR ---
SHIFT SUMMARY PT ANGRY AGITATED IRRITABLE. SHE REFUSED ANY FOOD OR SNACKS. REFUSED PAIN MEDS. SHE GOT TO SLEEP AFTER SECOND HALF OF SHIFT AND SLEPT THROUGH THE NIGHT AFTER THAT. INCONT OF URINE. BED ALARM IN USE.
--- NOTE | 2018-10-26 15:52 | NUR ---
patient is a complete turn of events today from yesterday. her called and expressed that the patient is not on one of her home medications. was notified but unsure how reliable the source is. patient is currently refusing care for her current nurse and aid. she states that she is having the worst care here at the hospital. reported she had not been fed in 3 days, i had the patient yesterday and was able to feed her yesterday. she has a loss of independence and is very labile. will continue to assess but unsure of how much will change in the next 24 hours.
--- NOTE | 2018-10-26 16:39 | NUR ---
SHIFT SUMMARY PATIENT IS UNCOMFORTABLE TODAY AND HAD A MAJOR TURN FROM PLEASANT TO IRRITABLE AND IN A BAD MOOD ALL DAY. SHE REPORTS THAT SHE IS REVEIVING BAD CARE AND THAT WE HAVE NOT FED HER IN 3 DAYS. SHE HAS DECIDED SHE HATES EVERYONE AT THIS TIME AND WILL HAVE NOTHING TO DO WITH US. SHE IS PRETENDING AT THIS TIME WHENEVER SOMEONE WALKS IN THAT SHE IS ASLEEP AND CANNOT WAKE UP.
--- NOTE | 2018-10-27 06:22 | NUR ---
SHIFT SUMMARY PT HAS BEEN PLEASANT AND COOPERATIVE. C/O PAIN X1 AND MEDICATED PER EMAR. INCONT OF URINE. C/O HEARTBURN AND GOT ORDER FOR PRN MAALOX. SHE WAS ABLE TO SLEEP T/O NOC. BED ALARM IN USE. ABLE TO MOVE R ARM BUT NOT AVIATION MEDICINE SPECIALIST WITH R HAND.
--- NOTE | 2018-10-27 17:30 | NUR ---
SHIFT SUMMARY SPOKE WITH THE PATIENT'S BROTHER, HE NOTED THAT THE PATIENT HAS SIGNIFICANT HIGHS AND LOWS IN HER MOODS. SHE HAS BEEN PLEASANT TODAY BUT NOTES THAT SHE DID NOT WANT DINNER, IT IS CURRENTLY SITTING IN THE PANTRY IN CASE THE PATIENT WANTS IT LATER. CURRENTLY SHE IS IN A LOWER MOOD AND STATING THAT WE HAVE DONE NOTHING THAT SHE WANTED TO GET HER DOG. WE ARE UNABLE TO DO MUCH WITH THIS REQUEST IT IS AGAINST THE POLICY FOR HER TO STAY WITH THE DOG IN THE HOSPITAL.
--- NOTE | 2018-10-28 06:32 | NUR ---
SHIFT SUMMARY PT HAS BEEN PLEASANT AND COOPERATIVE. C/O PAIN IN LEGS AND HEAD X2 AND MEDICATED PER EMAR. 2 PERSON ASSIST C GAIT BELT TO BSC. R HAND INSIDE SALES COORDINATOR HAS VERY SLIGHTLY OF A INSIDE SALES COORDINATOR R HAND CAN KIND OF CLOSE A LITTLE BIT. R ARM CAN BE MOVED WITH GROSS MOVEMENT AND R LEG CONTROLLED MOVEMENT BUT SHE HAS R SIDE NEGLECT. BED ALARM IN USE.
[2018-10-28 08:31] LABS: BASOPHILS ABSOLUTE AUTO 0.03 K/mm3 (0.00-0.23); BASOPHILS PERCENT AUTO 0 % (0-2); EOSINOPHILS ABSOLUTE AUTO 0.13 K/mm3 (0.00-0.68); EOSINOPHILS PERCENT AUTO 2 % (0-6); Hematocrit 33.9 % (33.0-51.0); Hemoglobin 11.2 g/dL (11.5-16.0); IMMATURE GRAN ABSOLUTE AUTO 0.04 K/mm3 (0.00-0.10); IMMATURE GRAN PERCENT AUTO 1 % (0-1); LYMPHOCYTES ABSOLUTE AUTO 1.25 K/mm3 (0.84-5.20); LYMPHOCYTES PERCENT AUTO 16 % (21-46); MONOCYTES ABSOLUTE AUTO 0.94 K/mm3 (0.16-1.47); MONOCYTES PERCENT AUTO 12 % (4-13); Mean Corpuscular HGB 30.5 pg (26.0-34.0); Mean Platelet Volume 8.6 fL (9.1-12.4); NEUTROPHILS ABSOLUTE AUTO 5.61 K/mm3 (1.96-9.15); NEUTROPHILS PERCENT AUTO 70 % (41-73); Platelet Count 338 K/mm3 (150-400); RDW Coefficient Variation 14.3 % (11.7-14.2); RDW Standard Deviation 48.5 fL (35.1-46.3); Red Blood Cell Count 3.67 M/mm3 (3.80-5.20)
[2018-10-28 08:32] LABS: Mean Corpuscular Volume 92 fL (80-100)
[2018-10-28 08:49] LABS: Alanine Aminotransfer (ALT/SGP 40 U/L (12-78); Albumin, Blood 3.1 g/dL (3.4-5.0); Albumin/Globulin Ratio 0.8 (0.8-1.8); Alk Phos 64 U/L (50-136); Anion Gap 7 mmol/L (6-16); Aspartate Aminotrans (AST/SGOT 28 U/L (12-37); Bilirubin, Total 0.9 mg/dL (0.1-1.0); Blood Urea Nitrogen 16 mg/dL (8-24); Bun/Creatinine Ratio 23.5 (12.0-20.0); CO2, Blood 29 mmol/L (21-32); Calcium, Blood 9.1 mg/dL (8.5-10.1); Chloride, Blood 105 mmol/L (98-108); Creatinine, Blood 0.68 mg/dL (0.40-1.00); Globulin, Blood 3.7 g/dL (2.2-4.0); Glomerular Filtration Rate >60 (60-); Glucose, Blood 112 mg/dL (70-99); Potassium, Blood 3.7 mmol/L (3.5-5.5); Sodium, Blood 141 mmol/L (136-145); Total Protein, Blood 6.8 g/dL (6.4-8.2)
--- NOTE | 2018-10-28 17:55 | NUR ---
SHE IS RESTING IN BED WITH THE ALARM SET. PAS ON BILATERALLY. HOB UP. SHE IS WATCHING TV. SHE USED HER SPECIAL UTENSILS AT DINNER. IT WAS VERY DIFFICULT FOR HER BUT PRACTICE HELPED. SHE THEN ACCIDENTALLY PUSHED HER WHOLE DINNER TRAY DOWN ONTO THE FOOT OF HER BED. LINENS CHANGED AND HOUSEKEEPING NOTIFIED THAT FLOOR NEEDS A MOP. SHE COMPLETELY IGNORES HER R ARM AND HAND. THE LAST TIME WE TRANSFERRED HER TO THE [facility], SHE HAD NO CONTROL OF HER R LEG. SHE ALSO HAS HAD MUCH DIFFICULTY CONTROLLING THE MOVEMENT OF HER L ARM AND HAS POOR DEXTERITY OF THE FINGERS ON HER LH. LYRICA WAS STARTED TODAY. LABS WERE MOSTLY WNL. SHE ADMITS HER BRAIN CANNOT FIGURE OUT HOW TO USE THE NURSE CALL LIGHT OR THE TV. SHE WAS CALLING OUT WHICH WORKED SINCE WE ARE CLOSE BY, BUT NOW HAS A SOFT TOUCH CALL LIGHT WHICH SHE DEMONSTRATED GOOD USE OF. SHE RECEIVED NORCO X1 TODAY FOR A TERRIBLE H/A. IT WAS EFFECTIVE. SHE HAS SOME EXPRESSIVE APHASIA. SHE IS VERY AWARE OF ALL HER DEFICITS AND CAN BE FRUSTRATED AT TIMES. SHE WORKED WELL WITH THERAPIES TODAY.
--- NOTE | 2018-10-29 05:05 | NUR ---
SHIFT SUMMARY THE PT ADMITTED FOR ACUTE CVA. FULL CODE. [facility] SOFT GROUND MEAT DIET, ASPIRATION PRECAUTIONS, UP FOR MEALS OR PLACED FULL IN CHAIR POSITION. Q 2 HR TURNS. SCDS. NEURO CHECKS Q 8 HRS. LOVENOX FOR DVT PROPHYLAXIS. 2 PERSON ASSIST TO BSC. TOTAL R SIDED NEGLECT WITH UNCONTROLLED MOVEMENTS OF BILATERAL EXTREMETIES. SPECIAL FEEDING UTENSILS FOR MEALS AND ASSIST WITH FEEDING NEEDED. NO IV ACCESS. TAKES MEDICATIONS WHOLE. THE PT PRESENTED AFTER BEING FOUND DOWN IN HER HOME AFTER NEIGHBORS DID NOT SEE PT FOR A WHILE. PT NOTED TO HAVE BILATERAL DISTRIBUTION INFARCTS WITH THE L SIDE LARGER THEN THE R. THE PT WAS ALSO NOTED TO HAVE HYPOTENSION AND RHABDOMYLOLYSIS. PT UNABLE TO QUALIFY FOR ANY INTERVENTIONS FROM NEUROLOGY DUE TO NEUROLOGICAL DEFECIT AND AGE. THE PT IS NOTED TO HAVE EXCESSIVE DRAMATIC MOOD CHANGES. FOR THE FIRST HALF OF THE SHIFT THE PT WAS VERY HAPPY AND FOR THE SECOND HALF THE PT PRESENTS VERY AGITATED, UNCONSOLLABLE, WITH THE USE OF VULGAR LANGERAGE. THE PT REFUSED HER PROTONIX THIS AM DUE TO ANGER, WITH VULGAR OUTBURSTS. THE PT IS CURRENTLY IN BED YELLING VULGAR WORDS AND STATING THAT THE PEOPLE HERE ARE ALL HORRIBLE. NO APPARENT SIGNS OF ACUTE DISTRESS. FREQUENT VISUAL CHECKS IT DOES NOT APPEAR THAT PT IS ABLE TO MAKE NEEDS KNOWN APPROPRIATE. BED ALARM FOR SAFETY. WILL CONTINUE TO MONITOR.
--- NOTE | 2018-10-29 05:39 | NUR ---
Q8HR NEURO CHECKS UNABLE TO PERFORM SECOND SET OF NEURO CHECKS THIS SHIFT DUE TO PTS INCREASED AGITATION AND BEING UNWILLING TO COOPERATE.
[2018-10-29 10:08] LABS: Source, Urine Voided
[2018-10-29 10:12] LABS: Bilirubin, Urine Neg (Neg); Blood, Urine 4+ (Neg); Glucose Qualitative, Urine Neg (Neg); Ketones, Urine Neg (Neg); Leukocyte Esterase, Urine 3+ (Neg); Nitrite, Urine Neg (Neg); Protein, Urine 3+ (Neg); Urobilinogen, Urine NORM (Normal)
[2018-10-29 10:20] LABS: Appearance, Urine Hazy (Clear); Color, Urine Yellow (P-Yellow)
[2018-10-29 10:21] LABS: Bacteria Few /hpf; Red Blood Cells, Urine TNTC /hpf (0-2); Squamous Epithelial Cells Not Seen /hpf (Few); White Blood Cells, Urine TNTC /hpf (0-5)
--- NOTE | 2018-10-29 11:08 | NUR ---
SHE IS TALKING WITH THE HSE ADVISOR NOW. SHE WAS WITHDRAWN EARLY THIS MORNING. SHE LET US TAKE VS AND ASSESS HER BUT DIDN'T TALK OR OPEN HER EYES. A LITTLE LATER, CLARISSE GIPSON WENT IN TO WORK WITH HER. THEY HAVE A GOOD REPORE WITH EACH OTHER. LUCIUS CRIED AND COMPLAINED AND VENTED TO HER, THEN WAS CALM AND WILLING TO WORK. SHE WORKED WELL. BREAKFAST ARRIVED. OT HELPED SET HER UP. LUCIUS FED HERSELF WITH THE LARGE ANGLED UTENSILS. IT WAS DIFFICULT FOR HER BUT SHE DID NOT SHOW FRUSTRATION. NOW HSE ADVISOR HAS LEFT. SHE HAS NO COMPLAINTS AT THIS TIME.
--- NOTE | 2018-10-29 11:27 | NUR ---
A UA WAS SENT PER PATIENT'S REQUEST AFTER I CALLED ABOUT IT. THE PATIENT IS HAVING FREQUENCY. RESULTS ANBNORMAL ENOUGH TO CULTURE THE URINE.
--- NOTE | 2018-10-29 11:34 | NUR ---
Patient verbalizes her frustration with her new physical limitation immediately when I enter patient's room. Patient begins to cry and tells me that she is different now and that her family unit complications are revealed at an even deeper level now. Patient goes into detail as to the relational struggles and how poorly her family has treated her when she needs them the most. I explore sources if dignity and value with the patient and remind her that she is worth far more than the sum total of her families words and actions toward her. I provide companionship, pastoral eap counselor and prayer. Patient responds well and states that she feels better and that she needed to share her hurts and fears. I marce lcontinue to be available to patient and family.
--- NOTE | 2018-10-29 17:28 | NUR ---
SHE HAS REMAINED IN A GOOD MOOD SINCE BREAKFAST TIME. SHE IS DOING WELL TODAY WITH HER ANGLED SILVERWARE AND SCOOP PLATE. NORCO GIVEN X1 FOR H/A. ALL 3 THERAPIES ARE SEEING PROGRESS.
--- NOTE | 2018-10-30 04:28 | NUR ---
SHIFT SUMMARY NO APPARENT ACUTE CHANGES NOTED SO FAR THIS SHIFT. THE PT SPIT OUT EVENING MEDICATIONS AFTER ADMINISTERING. THE PT ASKED WHAT THE MEDICATIONS WERE FOR PRIOR TO PLACING THEM IN MOUTH AND THEN ASKED AGAIN AFTER PLACING MEDICATIONS IN MOUTH. THIS NURSE EDUCATED PT REGARDING MEDICATIONS BOTH PRIOR TO PLACING IN MOUTH, AND FOLLOWING PLACING IN MOUTH AND THE PT APPEARED TO NO RECALL THE INFORMATION. THIS NURSE ATTEMPTED A THIRD TIME TO GET PT TO DRINK WATER TO SWALLOW MEDICATIONS BUT PT REFUSED TO SWOLLOW. THIS NURSE WAS CONCERNED THAT PT WOULD CHOKE AND ADVICED PT OF THIS, AT THAT POINT PT SPIT OUT MEDICATIONS AND STATED "NO, I'M NOT TAKING THESE, DON'T NEED THESE." THIS NURSE WAS ABLE TO COLLECT ALL MEDICATIONS AND WASTED THEM WITH CHARGE NURSE MARCELA. THE PT HAS APPEARED TO SLEEP COMFORTABLY MOST OF THE NIGHT. FREQUENT VISUAL CHECKS IT DOES NOT APPEAR THAT PT IS ABLE TO MAKE NEEDS KNOWN. WILL ATTEMPT TO ADMINISTER AM MEDICATIONS. BED ALARM FOR SAFETY.
--- NOTE | 2018-10-30 16:55 | NUR ---
SHIFT SUMMARY PATIENT HAS BEEN IN GOOD SPIRITS. SHOWERED. 1 PERSON ASSIST. MUMBLES SPEECH. THANKFUL OF CARE. ONLY 1 TEARFUL EVEN TODAY.
--- NOTE | 2018-10-30 18:38 | NUR ---
Pal Spiritual Care note: Larissa was in good spirits this afternoon and quite talkative. She spoke about what made her happy in life. 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 This was the best time of her life, she says. She admitted she is fearful of going to rehab. I normalized her emotions and complimented her on her strengths and natural gifts. Larissa responds well to affirmation and encouragement, and she chatted happily with me about her dogs and happy parts of her life. She has trouble finding words, but is easy to understyand with patience and a kind touch. She expresed enormous gratitude to [facility] staff and states she "has never been so well cared-for." She allowed me to pray for her continued healing at conclusion of visit. [employer] will remain available.
--- NOTE | 2018-10-31 04:25 | NUR ---
SHIFT SUMMARY NO APPARENT ACUTE CHANGES NOTED SO FAR THIS SHIFT. THE PT CONTINUES TO HAVE INCREASED ANGER AND AGITATION THROUGHOUT THE NIGHT. EARLIER IN THE SHIFT THE PT BECAME UPSET ABOUT STATING THAT SHE JUST REALIZED THAT SHE HAD A CAT AT HER HOME PRIOR TO BEING HOSPITALIZED. THE PT BECAME ANGRY WHEN TOLD THAT WE WERE NOT ABLE AT THIS TIME TO CHECK ON THE CAT AND SHE THREW HER JUICE ACCROSS THE ROOM. THE PT THEN LATER WHEN LIVE SOURCE OPERATOR ATTEMPTED TO DO VITALS BEGAN YELLING AND CURSING AT THE LIVE SOURCE OPERATOR AFTER THE PTS FOOT BECAME STUCK IN HER BLANKETS. THE PT IS IN ROOM AT THIS TIME YELLING PROPHANITY. NO APPARENT SIGNS OF ACUTE DISTRESS. FREQUENT VISUAL CHECKS IT APPEARS THAT PT IS NOT ABLE TO USE CALL LIGHT APPROPRIATELY.
--- NOTE | 2018-11-01 04:49 | NUR ---
MESSAGE AND DELIVERY SERVICE PRICER SUMMARY PT VERY PLEASANT AND COOPERATIVE AT START OF SHIFT. VERY POLITE AND TOOK BEDTIME MEDICATIONS WITHOUT ISSUE. AFTER A FEW HOURS PT MOOD CHANGED DRASTICALLY. PT HAS BEEN VERY IRRITABLE AND UNCOOPERATIVE WITH CARE. PT CONSTANTLY USING PROFANITY WITH STAFF AND WHILE ALONE IN THE ROOM. PT REFUSING ASSISTANCE WITH REPOSITIONING AND MOST OTHER CARE AT THIS TIME. PER REPORT FROM DAY RN, THIS HAS BEEN TYPICAL FOR THIS PT ESPECIALLY AT NIGHT. WILL CONTINUE TO MONITOR UNTIL DAY RN ASSUMES CARE.
--- NOTE | 2018-11-01 10:18 | NUR ---
VERIFY VIDEO MONITORING CALLED TO VERIFY MONITOR RUTHIE IS OBSERVING THE PT
--- NOTE | 2018-11-01 16:28 | NUR ---
SHIFT SUMMARY 62 YR OLD FEMALE ADMITTED FOR ACUTE CVA. FULL CODE. 1 PERSON ASSIST W/FWW TO BATHROOM. UP IN CHAIR MOST OF SHIFT. PILLS TAKEN WHOLE W/WATER. MECH/SOFT DIET W/GROUND MEAT. LABILE EMOTIONS LAST NIGHT AND THIS MORNING. HOWEVER MUCH OF THIS SHIFT COOPERATIVE AND PLEASANT. RT SIDED DEFICITS/WEAKNESS. DR. KAUR INCREASED NIGHT TIME SEROQUEL DOSE TODAY. PT/OT WORKING WITH PT. PLAN IS FOR DISCHARGE TO REHAB IN [place].
--- NOTE | 2018-11-02 06:32 | NUR ---
SHIFT SUMMARY PT IS A 62 Y/O FEMALE, ADMITTED FOR AN ACUTE CVA. SHE IS A&O X SELF AND FAMILY, WITH VERY LABILE EMOTIONS, INCLUDING EPISODES OF PARANOIA AND ANGER DURING THE NIGHT. SHE DENIED ANY COMPLAINTS OF PAIN, NAUSEA OR SOB DURING THE NIGHT. EVENING VITALS WERE STABLE, THOUGH PT REFUSED AM VITALS AND MEDS. NO OTHER ACUTE CHANGES IN PT CONDITION NOTED. WILL CONTINUE TO MONITOR AND TREAT PER EMAR UNTIL HAND OFF TO DAY SHIFT.
--- NOTE | 2018-11-02 18:26 | NUR ---
SHIFT SUMMARY LUCIUS WAS MOSTLY ORIENTED FOR THIS SHIFT. VERY CHEERFUL AND WOODS RIDER UNTIL MID AFTERNOON, WHEN SHE BECAME VERY DEPRESSED AND SAD ABOUT HER FAMILY/LIVING SITUATION. (WHEN SHE IS IN A GOOD MOOD, SHE STATED THAT HER WAS A GOOD MAN, AND THAT SHE LOVES HIM VERY MUCH). WALKED WITH PT IN HALLWAY WITH WALKER AND GAIT BELT AND AO1. R SIDE WEAK. DECLINED BREAKFAST AND DINNER, BUT ATE WELL AT LUNCH. RECEIVED TYLENOL AND NORCO TODAY FOR L HAND PAIN "FROM PT". TELE PLACED TO MONITOR FOR POSSIBLE AFIB BEING THE CAUSE OF HER STROKE PER DR HENSLEY. AO1 TO [facility] [place] WITH WALKER AND GAIT BELT. CALL LIGHT IN REACH, [facility]
--- NOTE | 2018-11-03 06:33 | NUR ---
SHIFT SUMMARY PT IS A 62 Y/O FEMALE, ADMITTED WITH AN ACUTE CVA. SHE HAS R-SIDE DEFICITS R/T HER STROKE, AND SLURRED SPEECH. SHE IS A&O X SELF AND FAMILY, WITH VERY LABILE EMOTIONS AND DRAMATIC MOOD SWINGS. THE PT WAS VERY AGITATED AT THE BEGINNING OF THE SHIFT, AND REACTED POORLY TO HER HUSBANDS VISIT BEFORE TELLING HIM SHE "DIDN'T WANT TO SEE HIM". SHE DENIED ANY COMPLAINTS OF PAIN, NAUSEA OR SOB AND SLEPT WELL DURING THE NIGHT. VITAL SIGNS REMAINED STABLE. NO OTHER ACUTE CHANGES IN PT CONDITION NOTED. WILL CONTINUE TO MONITOR AND TREAT PER EMAR UNTIL HAND OFF TO DAY SHIFT.
--- NOTE | 2018-11-03 18:33 | NUR ---
SHIFT SUMMARY EXPRESSIVE APHASIA. OX3. RIGHT SIDED WEAKNESS AND FACIAL DROOP. GOOD APPETITE ALL DAY. AMBULATED AROUND UNIT. DENIES ANY PAIN OR DISTRESS. XRALETO STARTED TODAY.
--- NOTE | 2018-11-04 05:30 | NUR ---
SHIFT SUMMARY PT IS A 62 Y/O FEMALE, ADMITTED FOR AN ACUTE CVA, WITH R-SIDE WEAKNESS AND SLURRED SPEECH R/T HER CVA. SHE IS A&O X 2, WITH PERIODS OF CONFUSION, LABILE EMOTIONS AND MOOD SWINGS. THE PT DID HAVE SOME EPISODES OF AGITATION AND ANGER DURING THE NIGHT, AT TIMES THROWING OBJECTS OR REFUSING LINEN CHANGES OR AID FROM NURSING STAFF. SHE IS A 1PA TO THE BEDSIDE COMMODE. VITALS REMAINED STABLE, WITH OCCASIONAL PERIODS OF TACHYCARDIA IN THE 100-110S PER THE PARAPROFESSIONAL INTERPRETER. NO COMPLAINTS OF PAIN, NAUSEA OR SOB. NO OTHER ACUTE CHANGES IN PT CONDITION NOTED DURING THE NIGHT. WILL CONTINUE TO MONITOR AND TREAT PER EMAR UNTIL HAND OFF TO DAY SHIFT.
--- NOTE | 2018-11-04 16:29 | NUR ---
SHIFT SUMMARY PT SITTING UP IN BED WATCHING TV DURING SHIFT REPORT. PLEASANT MOST ALL DAY. BECAME AGITATED AFTER TALKING TO BRIEFLY THIS AM, THROWING CALL LT AND PHONE TO FLOOR. PT CALLED NEEDED TO GET TO BSC. ASSISTED TO SHOWER AFTER BREAKFAST. PT VERY GRATEFUL. DR HENSLEY NOTIFIED FOR ORDER TO REMOVE TELE FOR SHOWER AND TO LEAVE IV SITE OUT. PT REFUSED TO ALLOW IV BACK IN WELL NOT NEEDED. PT ABLE TO WORK WITH PT/OT TODAY. C/O PAIN WHEN FINISHED TO RLE. PT GRATEFUL FOR THE EXERCISE AND WANTS TO GET BETTER. PT REPORTED THAT SHE IS GETTING BETTER, ESPECIALLY LEFT SIDE. PT REPORTS THAT SHE IS ABLE TO MOVE R SIDE MUCH BETTER NOW WELL. PT REPORTED THAT SHE HAS BENEFITS FOR CARE THRU HER INSURANCE, BUT ORIGINALLY COULDN'T REMEMBER THAT WHEN SHE WAS FIRST ADMITTED. PT DOES NOT WANT HER CARE MANAGED BY HER SHE HAS NOT LIVED WITH HIM FOR SEVERAL MONTHS. PT HAS DONE WELL TODAY OVERALL. ONLY 1 MOOD SWING NOTED TO PRESENT. CALL LT IN REACH.
--- NOTE | 2018-11-05 07:14 | NUR ---
alert and changable as well as asphasic, cooperative with staff, call light in reach, room air, no IV, walking rounds completed with returning day staff
--- NOTE | 2018-11-05 15:15 | NUR ---
SHIFT SUMMARY PT CONTINUES TO SHOW SLOW IMPROVEMENT IN MOBILITY AND STRENGTH. PT UP TO BTHRM WITH 1P ASSIST FOR SAFETY. DOES WELL IF SHE PAYS ATTENTION, BUT BECOMES UNSTEADY IF SHE DOES NOT FULLY CONCENTRATE. RUE WITH GROSS MOTOR MOVEMENT; UNCONTROLLED. RLE WITH SOME CONTROL; ABLE TO WALK IF HOLDING ONTO SOMEONE WITH L HAND. RH SLIGHTLY SWOLLEN AND COOL TO TOUCH. DR HENSLEY IN TO SEE PT EARLY THIS AM. TELE MX D/C'D. CARE MANAGERS AND P/T IN TO SEE PT TODAY WELL. PT TO POSSIBLY D/C TO INPATIENT REHAB. PT HAD ONE DRAMATIC MOOD OUTBURST THIS AM AFTER TALKING WITH AGAIN. RASH AND SCABS ON BUTTOCKS AND L LEG/FOOT CONTINUE TO HEAL. ABRASION TO R HIP HEALING WNL'S. MEDICATED WITH TYLENOL FOR C/O PAIN IN HER HANDS. PLEASANT AND GRATEFUL FOR CARE. CALL LT IN REACH. USES APPROPRIATELY.
--- NOTE | 2018-11-05 16:41 | NUR ---
Patient welcomes me warmly and immediately shares about how the stroke and the events of her life are helping to connect her deeper to God and His purpose for her life. Patient celebrates the victories she has had with the help of the ancillary services and states that these workers are God's vessals. Patient shares some of the family unit complications yet talks of how she will not be stopped or discouraged. I reinforce helpful attitudes and practices, give pastoral psychosocial rehabilitation counselor and provide prayer. Patient is deeply moved and weeps during the prayer and thanks me for the encouragement.
--- NOTE | 2018-11-06 06:39 | NUR ---
Looking forward to going to [place], dog visited yesterday with very happy but decided that she was being lied to and refused meds this am, call light in reach, no IV no tele, roomair, still asphasic, will continue to monitor and treat until provide bsr to on coming day shift
--- NOTE | 2018-11-06 08:00 | NUR ---
PT PLEASANT COOP A/O. SLURS SPEACH BUT MAKES NEEDS KNOWN. TALKS MUCH. DENIES PAIN. H/R REG, NO MURMER NOTED. NO TELE. LUNGS CLEAR, RESP EASY, UNLABORED. ON R/A. BT X4 LAST BM YEST. PT STATES NORMAL. VOIDS PER BATHROOM. 1 ASST. RT ARM WEAK. VERY LITTLE CONTROL. LEFT ARM WEAK, BUT USES PRETTY WELL. BOTH LEGS WEAK, RT APPEARS STRONGER BUT LESS CONTROL THAN LEFT. PT IS 1 ASST TO BATHTROOM. BED IN LOW POSITION, CALL LITE IN REACH, CALLS APPROP
--- NOTE | 2018-11-06 10:37 | NUR ---
Patient continues to show great improvement and is deeply thankful for the care and help she has received from the hospital staff. Patient states that she has been converted to become a believer in God, not one who is advent but one who has been to the edge of life and found God's kindness and strength and been forever changed by it. Patient is hoping to be an inspiration to those who have had similar medical struggles and need encouragement to contend for both physical and emotional health. Patient's , Marcel, is present during this visit and states that he can't believe how far the patient has come and says that he is working hard to prepare [employer] to transport patient back home to [place] and put patient in a rehabilitation facility. Marcel mentioned that he suggested a different facility then originally discussed due to doctor and insurance accessibility and requirements. Patient is anxious to go today but understands that there maybe some delays. Upon request of patient, I provided prayer. Patient and Marcel expressed gratitude for my patience and care.
--- NOTE | 2018-11-06 17:30 | NUR ---
PT PLEASANT AND VERY TALKATIVE TODAY. SHE CONTINUES TO BE SOMEWHAT GARBLED SPEACH. IS ABLE TO MAKE NEEDS KNOWN. RT WEAKNESS NOTED. PT WORKED WITH HER TODAY. DID WALK WITH GAITE BELT WITH PT. PT VERY PROUD OF IMPROVEMENTS. SIG OTHER DID BRING IN GLASSES FOR HER. CARE MANAGEMENT DISCUSSED WITH THEM BOTH ABOUT GOING TO [place] BY END OF WEEK. CARE MGMT STATES FAXED PAPER TO SNF. BED IN LOW POSITION, CALL LITE IN REACH, CALLS APPROP.
--- NOTE | 2018-11-06 23:39 | NUR ---
PT VERY PLEASANT AT START OF SHIFT. MOOD DRASTICALLY CHANGED NIGHT WENT ON. PT AGITATED AND ANGRY AT THIS TIME. YELLING PROFANITY. UNCOOPERATIVE WITH STAFF. ANY ATTEMPT TO CONSOLE OR HELP PT IS MET WITH SCREAMING AND PROFANITY. WILL CONTINUE TO MONITOR.
--- NOTE | 2018-11-07 05:32 | NUR ---
SHIFT SUMMARY PT'S MOOD VERY LABILE. EXTREMELY PLEASANT AT START OF SHIFT. AFTER A COUPLE HOURS IN PT BECAME VERY CONFUSED AND ANGRY. YELLING AND CURSING AT STAFF. NOT REDIRECTABLE. PT DID THIS FOR SEVERAL HOURS AND THEN JUST SUDDENLY PT'S MOOD CHANGED AGAIN AND SHE BECAME VERY PLEASANT AND COOPERATIVE AGAIN. PT APOLOGETIC ABOUT BEHAVIOUR AND BELIEVES THAT HER NIGHTTIME MEDICATIONS ARE CAUSING HER TO BE THIS WAY. PT COMPLAINED OF DISCOMFORT IN HER BLE'S, DESCRIBING IT "ANTS IN HER LEGS", SOUNDING LIKE RESTLESS LEGS. MEDICATED X 1 W/ 1 TAB NORCO. PT REPORTED THIS TO BE HELPFUL. PT CONTINUES TO HAVE DIFFICULTY DIRECTING HER R SIDE BUT AMBULATES WELL WITH 1 ASSIST TO THE RESTROOM. VSS. WILL CONTINUE TO MONITOR.
--- NOTE | 2018-11-07 11:58 | NUR ---
Patient is sitting up on a chair and is alert. Patient states that she thinks that she is having a reaction to a drug because she is having a hard time managing her moods at night and that maybe the drug she is receiving to help her sleep is actually causing her to be edgy. I spoke at length with patient about spiritual things because patient has had a spiritual type of experience while in the hospital and is wanting to continue to live a more kind and helpful life. Patient is very motivated to do well with the therapies she is receiving. I listen empathically, provide spiritual guidance and prayer. Patient responds well and shows signs of an elevated mood.
--- NOTE | 2018-11-07 17:03 | NUR ---
SUMMARY PT SITTING UP IN BED WATCHING TV, PT HAS BEEN PLEASANT AND COOPERATIVE T/O THE DAY, HAS WORKED WITH PT/OT, PT HAS ALSO HAD FRIENDS IN TO VISIT, PT MED PER EMAR FOR PAIN, VSS, NO ACUTE CHANGES, WILL CONT TO MONITOR
--- NOTE | 2018-11-08 05:14 | NUR ---
SHIFT SUMMARY OVERALL, PT'S MOOD SWINGS MUCH IMPROVED THIS EVENING. PT PLEASANT AND COOPERATIVE THROUGH MUCH OF THE NIGHT. PT DID HAVE A DIFFICULT TIME FALLING ASLEEP, NOT FALLING ASLEEP UNTIL APPROX 0100. PT SLEPT WELL AFTER THAT FOR APPROX 4 HOURS. WHEN WAKING AT 0500. PT ANGRY AGAIN, SIMILIAR TO PREVIOUS NIGHTS BUT NOT EXTREME. IRRITABLE. STATES "IT'S ALWAYS LIKE THIS DURING THE NIGHT". PT REFUSED PROTONIX THIS AM. BLOOD PRESSURE ELEVATED AT START OF SHIFT BUT IMPROVED THIS AM. OTHERWISE VITAL SIGNS STABLE. PT SPOKE TO AT LENGTH THIS EVENING ON THE PHONE ABOUT FEELING CONCERNED THAT SHE MAY D/C TODAY AND THAT SHE NEEDS A WHEELCHAIR AND A BEDSIDE COMMODE. PT REPORTED GENERALIZED PAIN, WORSE ON HER LEFT SIDE. MEDICATED X 1 W/ 1 TAB NORCO. UNEVENTFUL NIGHT. WILL CONTINUE TO MONITOR.
--- NOTE | 2018-11-08 10:11 | NUR ---
PT SITTING UP IN THE CHAIR AT THE BEDSIDE VISITING WITH FRIENDS AND SPIRITUAL CARE
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
--- NOTE | 2018-11-08 17:40 | NUR ---
SUMMARY PT SITTING UP IN BED EATING DINNER, PT HAS HAD SEVERAL VISITORS IN TODAY, PT WORKED WITH PT/OT, SPOUSE ARRIVED AND WAS EDUCATED BY PT/OT ON PROPER SAFETY TECHNIQUES FOR TRANSFERS, DISCHARGE PLANNING STILL WORKING ON DISCHARGE TO AN IRU IN [place], MAY NOT HAPPEN UNTIL SUNDAY, VSS, NO ACUTE CHANGES, WILL CONT TO MONITOR
--- NOTE | 2018-11-09 04:33 | NUR ---
SHIFT SUMMARY PT HAD NO ISSUES THIS SHIFT. PT WAS UP LATE. PT DID SLEEP OFF AND ON. PT HAD VISIT FROM HER AND PET DOG. PT WAS IN GOOD SPIRITS. PT EAGER TO GO TO IRU. PT CURRENTLY SLEEPING AND BREATHING EASY. CALL LIGHT IN REACH.
[2018-11-09 14:18] LABS: Source, Urine Clean Catch
[2018-11-09 14:23] LABS: Bilirubin, Urine Neg (Neg); Blood, Urine Neg (Neg); Glucose Qualitative, Urine Neg (Neg); Ketones, Urine Neg (Neg); Leukocyte Esterase, Urine Neg (Neg); Nitrite, Urine Neg (Neg); Protein, Urine Neg (Neg); Specific Gravity, Urine 1.015 (1.003-1.022); Urobilinogen, Urine NORM (Normal)
[2018-11-09 14:30] LABS: Appearance, Urine Clear (Clear); Color, Urine Yellow (P-Yellow)
--- NOTE | 2018-11-09 19:07 | NUR ---
PT. WITHOUT CHANGE THIS SHIFT, HAS ASKED QUITE A FEW QUESTIIONS ON DIFFERENT THINGS HAPPENING TO BODY SINCE CVA. HAS EXPLAINED SEVERAL TIMES ABOUT THE DEFICITS SHE HAS. HAS EATEN WELL TODAY WITHOUT CHOKING AND COUGHING.
--- NOTE | 2018-11-10 04:27 | NUR ---
SHIFT SUMMARY PT WAS UP LATE WITH . PT HAD NO ISSUES NOTED. PT HAS SLEPT WELL THIS SHIFT. PT CURRENTLY SLEEPING AND BREATHING EASY. CALL LIGHT IN REACH.
--- NOTE | 2018-11-10 18:28 | NUR ---
PT. UP IN CHAIR WATCHING T.V. PT. IS A LOT CALMER TODAY THAN YESTERDAY, NO NOTEABLE CHANGES THIS SHIFT.
--- NOTE | 2018-11-11 04:49 | NUR ---
SHIFT SUMMARY PT HAD NO ISSUES NOTED. PT VISITED UNTIL LATE. PT HAS BEEN SLEEPING WELL. PT IS AWAKE CURRENTLY AND IS CRYING PT RESPONDS THAT SHE IS FINE. WILL CONTINUE TO MONITOR.
--- NOTE | 2018-11-11 15:17 | NUR ---
ALERT. APHASIC AT TIMES. COOPERATIVE. PLEASANT. UPSET IN A.M, BUT REDIRECTABLE. CARE MANAGEMENT IN TO DISCUSS OPTIONS FOR DISCHARGE. UNLABORED RESPIRATIONS. SLURRED SPEECH WITH SOME INTERMITTENT DROOLING RT SIDE. ABLE TO MAKE NEEDS KNOWN. ABLE TO FEED SELF. GOOD APPETITE. WCTM.
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
--- NOTE | 2018-11-12 06:57 | NUR ---
WHILE SPEAKING TO PATIENT SHE STATED THAT SHE WAS HAVING CHEST PAIN RADIATING FROM THE LEFT SIDE OF HER CHEST TO HER RIGHT THEN TRAVELING DOWN HER LEFT ARM. SHE ALSO COMPLAINED OF THE PAIN RADIATING FROM FRONT TO BACK. PATIENT RATED PAIN AT A 4 OUT OF 10. PATIENT STATED IT FELT LIKE A TRUCK HAD RUN OVER HER CHEST. PATIENT STATED THAT SHE FELT PRESSURE. SPOKE WITH PHYSICIAN ABOUT PATIENT CHEST PAIN. GAVE ONE DOSE NITRO AND EKG DONE. AFTER NITRO PATIENT INITIALLY STATED THAT PAIN WAS BETTER BUT THEN CONTINUED TO TALK ABOUT THE PAIN. ATTEMPTED TO CALL BACK PHYSICIAN WITH EKG RESULTS BUT NO ANSWER. WAITING FOR CALL BACK.
--- NOTE | 2018-11-12 07:30 | NUR ---
TALKED TO DR. HAIDER ABOUT PATIENT HAD ; C.P. SINCE ABOUT 2 JEANNA BUT DID NOT SAY THAT INITIALLY. GIVEN NORCO AT 3 JEANNA. THEN TOLD RN AT 6 JEANNA C.P. LEFT SIDED RAD TO LEFT ARM AND JAW AND BACK. GIVEN ONE NTG AND EKG DONE. EKG SR. PAIN WAS ABOVE 10, NOW 4 (1-10). NO IV ASSESS, NO TROP DONE. ORDER STAT TROP. WCTM.
--- NOTE | 2018-11-12 08:27 | NUR ---
ADVISED TROP NEGATIVE.
--- NOTE | 2018-11-12 15:03 | NUR ---
Patient is very tearful today. Patient immediately states, "I'm done, I can't stay in this hospital anymore." Patient tells me that every attempt to get back home to [place] is met with obstacles. Patient tells me that she had terrible pain this morning and is not sure if it was something serious and feels like she will be stuck in the hospital forever. Patient is scared at night and tells me that the [place] that she is in is noisey and she is afraid to ask for help. I only had time to listen to patient when a imagining tech came in to take x-rays. Patient grabbed my hand when I went to leave so I said a quick prayer and left. I will follow-up with patient.
[2018-11-12 15:12] LABS: CHOL/HDL RATIO 3.5; CPK Creatine Kinase 65 U/L (26-193); Cholesterol 184 mg/dL (50-200); HDL Cholesterol 53 mg/dL (>39); LDL/HDL RATIO 2.2; Low Density Lipoprotein Chol 115 mg/dL (0-110); Triglycerides 82 mg/dL (30-160); Troponin I <0.015 ng/mL (0.000-0.040); Very Low Density Lipoprot Chol 16 mg/dL (6-32)
--- NOTE | 2018-11-12 18:13 | NUR ---
ALERT. ORIENTED. APHAGIA AT TIMES. IRU IN [place] HAS ACCEPTED PATIENT AND TO BE D'C TOMORROW. W/C FROM [facility] HAS BEEN BROUGHT AND PATIENT STICKER PLACED. UNLABORED RESPIRATIONS. COOPERATIVE. MIDAFTERNOON BECAME VERY TIRED AND ALMOST 2 PERSON ASSIST. PATIENT AWARE D'C TOMORROW. WCTM.
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
[2018-11-13] MEDS ORDERED: ASPI81CH PO (08:00)
[2018-11-13] MEDS ORDERED: MELATONIN5 M1 PO (08:01)
[2018-11-13] MEDS ORDERED: ATOR10 PO (08:01)
[2018-11-13] MEDS ORDERED: XARELTO20 MG PO (08:01)
--- NOTE | 2018-11-13 08:11 | NUR ---
REPORT GIVEN TO MARTINA AT [facility] IN [place], [place]. ANSWER ALL QUESTIONS. PATIENT TONI [id number].
== END 2018-11-13 07:45 | DRG 64 ==
LOC: ER 13:15 → EDBD 15:22 → ICUW 15:22 → MEDS 15:22 → ICUE 15:22 → PCU 10-19 19:25 → MEDS 10-21 10:04
PROVIDERS: Emergency Medicine; Family Medicine; Internal Medicine; Internal Medicine Critical Care Medicine; Nurse Practitioner Acute Care; ADMIT Internal Medicine
DX: I63.513 Cerebral infarction due to unspecified occlusion or stenosis of bilateral middle cerebral arteries (principal); G93.6 Cerebral edema; N17.9 Acute kidney failure, unspecified; E87.0 Hyperosmolality and hypernatremia; I24.8 Other forms of acute ischemic heart disease; M62.82 Rhabdomyolysis; I50.32 Chronic diastolic (congestive) heart failure; R47.01 Aphasia; I95.9 Hypotension, unspecified; E86.0 Dehydration; E87.6 Hypokalemia; D72.829 Elevated white blood cell count, unspecified; R47.81 Slurred speech; T14.8XXA Other injury of unspecified body region, initial encounter; K21.9 Gastro-esophageal reflux disease without esophagitis; E83.39 Other disorders of phosphorus metabolism; I27.21 Secondary pulmonary arterial hypertension; J44.9 Chronic obstructive pulmonary disease, unspecified; F32.9 Major depressive disorder, single episode, unspecified; R53.83 Other fatigue; R45.86 Emotional lability; Z79.82 Long term (current) use of aspirin
CPT/HCPCS: 36415; 36600; 51702; 70450; 71045; 71046; 72125; 73502; 73620; 80048; 80053; 80061; 80069; 81001; 81003; 82330; 82550; 82553; 82803; 82947; 83036; 83605; 83735; 84100; 84132; 84443; 84484; 84550; 85025; 85610; 87077; 87086; 87186; 92507; 92523; 92526; 92610; 93005; 93010; 93306; 96361-59; 96365-59; 96366-59; 96375-59; 97110; 97112; 97116; 97163; 97164; 97167; 97530; 97535; 99285-25; A9270; A9270-GY; C1751; C9113; G0480; J1650; J1720; J3010; J3475; J3480; J7030; J7050; J7060; J7120; L0160